=== PATIENT | male | born 1985 | race Caucasian/White ===

== ENCOUNTER 2022-07-14 13:28 | Emergency (ER) | payer OTHER, SELFPAY ==
[2022-07-14 13:32] VITALS: BP 163/93; PULSE 68; RESP 22; TEMP 36.8; O2SAT 99
[2022-07-14 14:18] LABS: Add Manual Diff / Slide Review NO; Basophils Absolute Auto 0 /uL (0-100); Basophils Percent Auto 0.5 % (0-2); Eosinophils Absolute Auto 100 /uL (0-450); Eosinophils Percent Auto 1.9 % (2-4); Hematocrit 39.3 % (41-53); Hemoglobin 13.8 g/dL (13.5-17.5); Lymphocytes Absolute Auto 1100 /uL (1100-4500); Lymphocytes Percent Auto 23.8 % (25-40); Mean Corpuscular Hemoglobin 31.5 PG (26-34); Monocytes Absolute Auto 400 /uL (0-900); Monocytes Percent Auto 8.9 % (3-14); Neutrophils Absolute Auto 3000 /uL (1500-7000); Neutrophils Percent Auto 64.9 % (50-75); Platelet Count 209 X10^3/uL (150-400); Red Blood Cell Count 4.37 X10^6/uL (4.5-5.9); Red Cell Distribution Width 13.1 % (11.6-14.8); White Blood Cell Count 4.6 X10^3/uL (4.5-11.0)
[2022-07-14 14:21] LABS: Acetaminophen < 10 ug/mL (10-30); Alanine Aminotransferase 16 IU/L (<50); Albumin 4.7 g/dL (3.5-5.0); Albumin Globulin Ratio 1.4 (1.0-2.8); Alkaline Phosphatase 43 U/L (38-126); Aspartate Aminotransferase 24 IU/L (17-59); BUN Creatinine Ratio 17.8 (6-22); Bilirubin Total 0.5 mg/dL (0.2-1.3); Blood Urea Nitrogen 16 mg/dL (9-20); Calcium 9.1 mg/dL (8.4-10.2); Carbon Dioxide 30 mmol/L (22-32); Chloride 104 mmol/L (98-107); Estimated Glomerular Filt Rate > 60 mL/min (>60); Ethanol (ETOH) 60 mg/dL; Globulin 3.3 g/dL (1.7-4.1); Glucose 111 mg/dL (70-100); HEMOLYSIS 16 (0-50); Potassium 4.5 mmol/L (3.4-5.1); Salicylate < 1.0 mg/dL (<20); Sodium 144 mmol/L (137-145)
[2022-07-14 14:37] LABS: COVID19 -Nasal RAPID Negative (Negative)
[2022-07-14 14:51] LABS: Thyroid Stimulating Hormone 0.566 uIU/mL (0.47-4.68)
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
--- NOTE | 2022-07-14 16:19 | PC.NURSE ---
faxed facesheet/labs to toni 07/14/22 @ 2274
[2022-07-14] MEDS: ACETAMINOPHEN 325 MG TABLET 975 MG PO (16:46)
[2022-07-14 17:06] LABS: UR Morphine/Opiate cutoff 300 Negative (Negative); Ur Creatinine Normal (Normal); Ur Specific Gravity Normal (Normal); Urine Amphetamines Negative (Negative); Urine Barbiturates Negative (Negative); Urine Benzodiazepines Negative (Negative); Urine Cocaine Negative (Negative); Urine MDMA Negative (Negative); Urine Methadone Negative (Negative); Urine Methamphetamines Negative (Negative); Urine Oxycodone Negative (Negative); Urine Phencyclidine Negative (Negative); Urine Tetrahydrocannabinol Negative (Negative); Urine Tricyclic Antidepressant Negative (Negative); Urine pH Normal (Normal)
[2022-07-14 17:08] LABS: Appearance Urine UA CLEAR; Bilirubin Urine UA NEGATIVE (NEGATIVE); Color Urine UA YELLOW; Glucose Urine UA TRACE g/dL (Negative); Ketones Urine UA NEGATIVE (NEGATIVE); Leukocyte Esterase Urine UA NEGATIVE (NEGATIVE); Nitrite Urine UA NEGATIVE (Negative); Occult Blood Urine UA NEGATIVE (Negative); Protein Urine UA TRACE (Negative); Specific Gravity Urine UA 1.015 (1.000-1.035); Urobilinogen Urine UA 0.2 E.U./dL (0.2)
[2022-07-14 17:09] LABS: RBC Urine 0-1/HPF (0-5/HPF); WBC Urine None Seen (0-5/HPF)
[2022-07-14 17:10] LABS: Bacteria Urine None Seen; Culture Indicated Urine Cult Not Indicated
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
[2022-07-14] MEDS: KETOROLAC 30 MG/ML VIAL IM (18:30)
[2022-07-14 18:32] VITALS: BP 144/74; PULSE 78; RESP 16; O2SAT 99
== END 2022-07-14 18:32 | disposition home or self-care (01) ==
PROVIDERS: Emergency Provider Emergency Medicine
DX: R45.851 Suicidal ideations (principal); Z20.822 Contact with and (suspected) exposure to COVID-19
CPT/HCPCS: 80053; 80305; 80320; 80329; 81001; 84439; 84443; 85025; 87635; 96372; 99284; C9803; G0480; J1885

== ENCOUNTER → 2024-12-11 12:35 | Outpatient (CLI) | payer OTHER, SELFPAY ==
--- NOTE | 2024-12-11 12:47 | DI.MRI.S_ITS ---
PROCEDURE: MR LUMBAR SPINE WO CON INDICATIONS: HX CHRONIC LOW BACK PAIN TECHNIQUE: Noncontrast sagittal T1 spin echo and T2 fast echo, sagittal STIR, and T2 fast spin echo through the lumbar spine. In cases with scoliosis, additional coronal T2 fast spin echo may be performed. COMPARISON: None. FINDINGS: Image quality: Excellent. Alignment and Curvature: There is normal bony alignment. Bone Marrow: Marrow is of normal overall signal. No acute vertebral body compression fractures. Spinal Cord: Conus medullaris terminates at the L1 level. Visualized cord demonstrates normal signal and size. Paraspinous Soft Tissues: No paravertebral masses. T12-L1: No significant spinal canal stenosis or neural foraminal narrowing. L1-L2: No significant spinal canal stenosis or neural foraminal narrowing. L2-L3: No significant spinal canal stenosis or neural foraminal narrowing. L3-L4: No significant spinal canal stenosis or neural foraminal narrowing. L4-L5: Disc desiccation and mild circumferential disc bulging as well as mild bilateral facet hypertrophy. Findings result in mild narrowing of the bilateral neural foramina without significant spinal canal stenosis. L5-S1: Mild facet hypertrophy. No significant spinal canal stenosis or neural foraminal narrowing. IMPRESSION: Mild degenerative disc disease and facet hypertrophy as described in the body of the report. No high-grade spinal canal stenosis or high-grade neural foraminal narrowing. Approved by: Mikel John M.D. on 12/11/2024 at 14:12
== END ==
LOC: MRI 12:36
PROVIDERS: Referring Provider Student in an Organized Health Care Education/Training Program; Visit Provider Student in an Organized Health Care Education/Training Program
DX: M51.360 Other intervertebral disc degeneration, lumbar region with discogenic back pain only (principal); M47.816 Spondylosis without myelopathy or radiculopathy, lumbar region; M47.817 Spondylosis without myelopathy or radiculopathy, lumbosacral region
CPT/HCPCS: 72148

== ENCOUNTER → 2025-07-27 12:21 | Outpatient (CLI) | payer OTHER, SELFPAY ==
--- NOTE | 2025-07-27 12:23 | DI.ECHO.S_ITS ---
[facility] : : [address] : : [place] : : [id number] : : Phone: [phone] Echocardiogram Report + + :Name: GASPER VILCHIS Study Date: 07/27/2025 Height: 71 in : :[facility] ReadingLocation: Weight: 180 lb : : Gender: Male BSA: 2.0 m2 : :: 1985 Age: 39 yrs BP: 160/90 mmHg: :Reason For Study: Abnormal EKG : :Ordering Physician: BETH, : :RAGHAV Performed By: Ced No : :Referring: RAGHAV CAMPOS : + + Interpretation Summary The left ventricle is normal in size and wall thickness. Left ventricular systolic function is normal. The ejection fraction is estimated to be 60-65%. The right ventricle is normal in size and function. Mild MR There is mild tricuspid regurgitation. The right ventricular systolic pressure is estimated to be at least 36 mmHg based on an estimated right atrial pressure of 3 mm Hg. Procedure: A two-dimensional transthoracic echocardiogram with color flow and Doppler was performed. The study quality was technically adequate. There is no prior echocardiogram noted for this patient. The patient was in normal sinus rhythm during the exam. Left Ventricle: The left ventricle is normal in size and wall thickness. There is no thrombus. Left ventricular systolic function is normal. The ejection fraction is estimated to be 60-65%. There are no focal wall motion abnormalities. Normal diastolic function. Right Ventricle: The right ventricle is normal in size and function. Atria: The left atrium is mildly dilated. The right atrium is normal in size. There is no Doppler evidence for an interatrial shunt. Mitral Valve: The mitral valve leaflets appear normal. There is no evidence of stenosis, fluttering, or prolapse. There is mild mitral regurgitation. Aortic Valve: The aortic valve is trileaflet. The aortic valve opens well. There is no aortic valve stenosis. No aortic regurgitation is present. Tricuspid Valve: The tricuspid valve is normal. There is mild tricuspid regurgitation. The right ventricular systolic pressure is estimated to be at least 36 mmHg based on an estimated right atrial pressure of 3 mm Hg. Pulmonic Valve: The pulmonic valve is not well seen, but is grossly normal. There is a trace or physiologic amount of pulmonic regurgitation. Great Vessels: The aortic root is normal size. The ascending aorta is normal in size. The aortic arch could not be visualized. The pulmonary artery is normal size. The IVC is of normal diameter and collapses greater than 50% with a sniff. This suggests a low right atrial pressure of 3 mm Hg. Pericardium/ Pleura There is no pericardial effusion. MMode/2D Measurements & Calculations LVIDd: 4.9 cm LVOT diam: 2.1 cm LVIDs: 2.6 cm Ao root diam: 3.0 cm FS: 47.1 % asc Aorta Diam: 3.1 cm IVSd: 0.94 cm LVPWd: 0.80 cm LV christopher. diameter/BSA (cm/m^2): 2.4 LV sys. diameter/BSA (cm/m^2): 1.3 LA A2 area: 23.1 cm2 RA long axis: 6.0 cm LA A4 area: 27.8 cm2 RA area: 18.9 cm2 LA length (vol): 6.5 cm RA vol: 50.5 ml LA vol: 84.2 ml RA : 25.0 ml/m2 LA vol index: 41.8 ml/m2 IVC diam: 1.2 cm RVD1 (basal): 2.9 cm RVD2 (mid): 2.5 cm TAPSE: 2.5 cm Doppler Measurements & Calculations Ao V2 max: 150.8 cm/sec LVOT Max Scott: 96.1 cm/sec Ao V2 mean: 91.3 cm/sec LV V1 max P.7 mmHg Ao max P.1 mmHg LV V1 VTI: 20.6 cm Ao mean P.0 mmHg TRENTON(I,D): 2.5 cm2 Ao V2 VTI: 28.9 cm TRENTON(V,D): 2.2 cm2 sev ratio: 0.71 TRENTON indexed to BSA (cm^2/m^2): 1.2 MV E max scott: 80.1 cm/sec TR max scott: 284.9 cm/sec MV A max scott: 40.0 cm/sec TR max P.5 mmHg MV E/A: 2.0 PA V2 max: 101.5 cm/sec Med Peak E' Scott: 11.0 cm/sec PA V2 mean: 67.4 cm/sec E/E' med: 7.3 PA mean P.1 mmHg Lat Peak E' Scott: 17.9 cm/sec PA pr(Accel): 26.3 mmHg E/E' lat: 4.5 E/e' average: 5.9 MV dec time: 0.17 sec SV(LVOT): 72.1 ml Qp/Qs (V,Ao): 1.0/2.5 Qp/Qs (V,LVOT): 1.3/1.0 Reading Physician:05:08 PM
== END ==
LOC: ECHO 12:22
PROVIDERS: Referring Provider Orthopaedic Surgery; Visit Provider Orthopaedic Surgery
DX: I08.1 Rheumatic disorders of both mitral and tricuspid valves (principal); R94.31 Abnormal electrocardiogram [ECG] [EKG]; R00.2 Palpitations; R01.1 Cardiac murmur, unspecified
CPT/HCPCS: 93306